=== PATIENT | female | born 1965 | race Caucasian/White ===

== ENCOUNTER 2023-10-31 11:16 | Outpatient (CLI) | payer OTHER, SELFPAY ==
--- NOTE | ~2023-10-31 | MM_ITS ---
EXAMINATION: MM screening aureliano BI w darío HISTORY: Screening mammogram TECHNIQUE: Craniocaudal and mediolateral oblique 3-D tomosynthesis images were obtained and synthetic 2-D images were generated. CAD analysis was submitted and interpreted. COMPARISON: 10/24/2016 bilateral screening mammogram BREAST PARENCHYMAL COMPOSITION: The breasts are heterogeneously dense, which may obscure small masses . FINDINGS: There is no evidence of suspicious mass, calcification, or architectural distortion to sugg est malignancy in either breast. There has been no suspicious interval change. IMPRESSION: 1. No mammographic evidence of malignancy. 2. Recommend routine screening mammography in one year. BI-RADS Category 1: Negative Reviewed, dictated and finalized at location B.
== END 2023-10-31 11:17 | disposition home or self-care (01) ==
PROVIDERS: PCP Family Medicine; Visit Provider Family Medicine
DX: Z12.31 Encounter for screening mammogram for malignant neoplasm of breast (principal)
CPT/HCPCS: 77063; 77067

== ENCOUNTER 2025-04-26 13:43 | Outpatient (CLI) | payer OTHER, SELFPAY ==
--- NOTE | ~2025-04-26 | MM_ITS ---
EXAMINATION: MM screening aureliano BI w darío HISTORY: Screening TECHNIQUE: Craniocaudal and mediolateral oblique 3-D tomosynthesis images were obtained and synthetic 2-D images were generated. CAD analysis was submitted and interpreted. COMPARISON: Comparison to multiple prior studies sequentially, with oldest reviewed study dated 10/24/2016. BREAST PARENCHYMAL COMPOSITION: Dense: The breasts are heterogeneously dense, which may obscure small masses FINDINGS: There is no evidence of suspicious mass, calcification, or architectural distortion to suggest malignancy in either breast. There has been no suspicious interval change. IMPRESSION: 1. No mammographic evidence of malignancy. 2. Recommend routine screening mammography in one year. BI-RADS Category 1: Negative Reviewed, dictated and finalized at location B.
--- OUTSIDE RECORDS SUMMARY | 2025-04-26 13:47 | XMS_ITS | Clinical Summary ---
Author Organization [facility] Address [address] [address] Care Team Providers Care Business Division Chair Name Role Phone Unavailable Primary Care Provider Unavailabl e Source Comments [facility],non-owned Affiliates and Associated Physician Practices is amultiple site organization consisting of ambulatory clinics and hospital sitesin [place], [place], [place] and [place]. This disclosure is being madepursuant to the Care Everywhere program and may not contain all information available regarding this patient. Last updated 18.[facility] Allergies Active Allergy Reactions Criticality Noted Date Comments Sulfa Drugs 06/20/2009 Medications * Be aware that medications may not be up to date on this document. Alwaysverify current medications with the patient. propranolol (INDERAL) 60 MG tablet Take 60 mg by mouth every 8 hours. Active montelukast (SINGULAIR) 10 MG tablet Take 10 mg by mouth at bedtime Active fluticasone propionate (FLONASE) 50 MCG/ACT nasal sprayIndication s:Rhinosinusiti s [place] 2 Sprays into each nostril once daily 1 Bottle 7 Active Additional Information Patient not taking.Reported on 02/23/2020 Active Problems No known active problems Social History Tobacco Use Types Packs/Day Years Used Date Smoking Tobacco: Never Smokeless Tobacco: Never Alcohol Use Standard Drinks/Week Comments No 0 (1 standard drink = 0.6 oz pur e alcohol) Comments No Sex and Gender Information Value Date Recorded Sex Assigned at Not on file 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 Gender Identity Not on file Sexual Orientation Not on file Last Filed Vital Signs Vital Sign Reading Time Taken Comments Blood Pressure 116/70 02/23/2020 10:42 AM CDT Pulse 54 11/02/2016 10:27 AM CDT Temperature 36.7 C (98.1 F) 11/02/2016 10:27 AM CDT Respiratory Rate - - Oxygen Saturation 99% 11/02/2016 10:27 AM CDT Inhaled Oxygen Concentration - - Weight 49 kg (108 lb) 02/23/2020 10:42 AM CDT Height 165.1 cm (5' 5) 11/06/2017 11:04 AM CDT Body Mass Index 17.97 11/06/2017 11:04 AM CDT Plan of Treatment Health Maintenance Due Date Last Done Comments COLOGUARD (AGES 45-75) - COL ON CA SCREENING 1966 COLON MONITORING 1966 COLONOSCOPY - COLON CA SCREENING 1966 CT COLONOGRAPHY - COLON CA SCREENING 1966 Colorectal Cancer Screening 1966 FIT - COLON CA SCREENING 1966 FLEX SIG - COLON CA SCREENING 1966 LIPID TESTING 1966 HIV SCREENING 1981 HEPATITIS C SCREENING 05/15/1984 DTAP/TDAP/TD VACCINES (1 - Tdap) 1985 HEPATITIS B VACCINE (1 of 3 - 19+ 3-dose series) 1985 PNEUMOCOCCAL VACCINE 50+ (1 of 1 - PCV) 2016 ZOSTER VACCINE (1 of 2) 2016 MAMMOGRAM 10/24/2018 10/24/2016, 01/04/2013 DEPRESSION SCREENING 07/27/2024 COVID-19 VACCINE (1 - 2023-2 5 season) 2025 INFLUENZA VACCINE (#1) 2025 HIB VACCINE Aged Out No longer eligi ble based on patient's age to complete this topic HPV VACCINE Aged Out No longer eligi ble based on patient's age to complete this topic MENINGOCOCCAL (Group B) VACCINE SHARED DECISION-MAKING Aged Out No longer eligible based on patient's age to complete this topic MENINGOCOCCAL GROUPS A/C/Y/W VACCINE Aged Out No longer eligible b ased on patient's age to complete this topic Procedures Procedure Name Priority Date/Time Associated Diagnosis Comments MAMMOGRAPHY ORDER Routine 10/24/2016 from Last 3 Months or Most Recently Relevant to Health Maintenance Results * MAMMOGRAPHY ORDER (10/24/2016) Anatomical Region Laterality Modality Mammography us Scanned Document MAMMO ORDERABLES Final Result from Last 3 Months or Most Recently Relevant to Health Maintenance Insurance
== END 2025-04-26 13:44 | disposition home or self-care (01) ==
LOC: ANHFOHIMG 13:45
PROVIDERS: PCP Family Medicine; Visit Provider Nurse Practitioner
DX: Z12.31 Encounter for screening mammogram for malignant neoplasm of breast (principal)
CPT/HCPCS: 77063; 77067

== ENCOUNTER 2025-05-26 14:15 | Outpatient (CLI) | payer OTHER, SELFPAY ==
--- NOTE | ~2025-05-26 | DEXA_ITS ---
Bone Density Report Name: NEVAEH MALLOY Age: 60 Sex: Female Ethnicity: White Date of : 1965 Indication: postmenopausal; screening for osteoporosis; Referring Provider: Lissett Perez Study: Bone densitometry was performed. Exam Date: May 26, 2025 Accession number: [id number] Bone Density: Region BMD T-score Z-score Classification AP Spine(L1-L4) 0.762 -2.6 -1.3 Osteoporosis Femoral Neck (Left) 0.603 -2.2 -1.0 Osteopenia Total Hip (Left) 0.681 -2.1 -1.3 Osteopenia Femoral Neck (Right) 0.599 -2.3 -1.0 Osteopenia Total Hip (Right) 0.636 -2.5 -1.6 Osteoporosis Total Hip Mean 0.658 -2.3 -1.5 Osteopenia World Health Organization criteria for BMD impression classify patients as: Normal (T-score at or above -1.0), Osteopenia (T-score between -1.0 and -2.5), or Osteoporosis (T-score at or below -2.5). 10-year Fracture Risk: FRAX not reported because: Some T-score for Spine Total or Hip Total or Femoral Neck at or below -2.5 Clinical Information Provided by Patient: Patient maximum height was 66 Menopause Age: 51 Drinks caffeinated beverages Onset of menses at age 14 Number of children 1 Missed period for more than 6 months in a row Impression: The patient has osteoporosis, based on the Total Spine T-score. Discussion: INCREASED RISK OF FRACTURE. BONE DENSITY IS UNDESIRABLY LOW AT ONE OR MORE SKELETAL SITES, CONSISTENT WITH POSTMENOPAUSAL OSTEOPOROSIS. This patient's lowest T-score meets the World Health Organization's (WHO) criteria for osteoporosis at one or more sites (T-score -2.5 or below). In untreated patients, the risk of osteoporotic fracture increases approximately two-fold for each 1.0 SD decrease in T-score. Low bone density is not the only risk factor for fracture; also consider factors such as patient's age, frailty or poor health, risk of falling, risk of injury, previous osteoporotic fracture, family history of osteoporosis, cigarette smoking, low body weight, etc. Not everyone with low bone mineral density has osteoporosis; osteomalacia and other metabolic bone disorders should also be considered. Patients who have osteoporosis should be evaluated for specific diseases and conditions (secondary causes) that may cause or contribute to bone loss. The [place] [employer]ocrin[employer] (AACE) and National Osteoporosis Foundation (NOF) recommend pharmacologic intervention for all postmenopausal women whose T-score is in this range. The patient should follow a healthful lifestyle (good nutrition with adequate calcium and vitamin D, and appropriate weight-bearing exercise). Follow-Up: Consider a repeat BMD and Vertebral Fracture Assessment (VFA) exam in 2 years or sooner if medically necessary, to reassess this patient's status. Reported by: MILLIE on 05/26/2025 2:53:00 PM. Reviewed, dictated and finalized at location A.
== END 2025-05-26 14:16 | disposition home or self-care (01) ==
LOC: MICIMG 14:16
PROVIDERS: PCP Family Medicine; Visit Provider Family Medicine
DX: M81.0 Age-related osteoporosis without current pathological fracture (principal); M85.89 Other specified disorders of bone density and structure, multiple sites; Z78.0 Asymptomatic menopausal state
CPT/HCPCS: 77080